=== PATIENT | female | born 1980 | race Caucasian/White ===

== ENCOUNTER 2017-12-27 09:45 | Emergency (ER) | payer MEDICAID ==
[~2017-12-27] VITALS: Ht 165.1 cm; Wt 81.6 kg
[~2017-12-27 09:45] MED LIST: IBUP-974 PO
[2017-12-27 09:50] VITALS: BP 116/75
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
[2017-12-27] MEDS ORDERED: KETOROLAC 60 MG/2 ML VIAL IM ONE (10:14)
[2017-12-27] MEDS: KETOROLAC 60 MG/2 ML VIAL IM ONE (10:16)
--- NOTE | 2017-12-27 10:50 | NUR ---
PT HOLDING LENGTHY CONVERSATION ON CELL PHONE , NO GRIMACE OR MOAN NOTED. CONTINUES TO WAIT FOR MD DALE
--- NOTE | 2017-12-27 11:05 | NUR ---
ER MD DR. EUCEDA EVALUATING PT AT [facility].
--- NOTE | 2017-12-27 11:17 | NUR ---
Patient discharged with v/s stable. Written and verbal after care instructions given and explained. Patient alert, oriented and verbalized understanding of instructions. Ambulatory with steady gait. All questions addressed prior to discharge. ID band removed. Patient advised to follow up with PMD. Rx of NORCO/MOTRIN given. Patient educated on indication of medication including possible reaction and side effects. Opportunity to ask questions provided and answered.
[2017-12-27 11:18] VITALS: BP 113/79
--- NOTE | 2017-12-27 11:18 | NUR ---
AMBULATORY WITH STEADY GAIT ---ADMITS PAIN LEVEL HAS DECREASED
== END 2017-12-27 11:17 | disposition home or self-care (01) ==
LOC: MED 09:45
DX: S13.4XXA Sprain of ligaments of cervical spine, initial encounter (principal); E78.5 Hyperlipidemia, unspecified; E11.9 Type 2 diabetes mellitus without complications; I10 Essential (primary) hypertension; Z90.49 Acquired absence of other specified parts of digestive tract; Z88.8 Allergy status to other drugs, medicaments and biological substances; V43.52XA Car driver injured in collision with other type car in traffic accident, initial encounter; Y93.I9 Activity, other involving external motion; Y92.488 Other paved roadways as the place of occurrence of the external cause; Y99.8 Other external cause status
CPT/HCPCS: 82948; 96372; 99283; J1885; 81002; 81025

== ENCOUNTER 2018-02-15 19:57 | Emergency (ER) | payer MEDICAID ==
[~2018-02-15] VITALS: Ht 165.1 cm; Wt 85.3 kg
[2018-02-15 20:11] VITALS: BP 126/77
--- NOTE | 2018-02-15 20:17 | NUR ---
TO BED # 9 VIA W/C
--- NOTE | 2018-02-15 20:22 | NUR ---
PT TO ER BED 9
--- NOTE | 2018-02-15 20:25 | NUR ---
PATIENT PRESENTS TO ED WITH DIZZINESS X10 DAYS. PT DENIES N/V/D; SKIN IS PINK/WARM/DRY; AAOX4 WITH EVEN AND STEADY GAIT; LUNGS CLEAR BL; HR EVEN AND REGULAR; PT DENIES ANY FEVER, CP, SOB, OR COUGH AT THIS TIME; PATIENT STATES PAIN OF 5/10 AT THIS TIME; VSS; PATIENT POSITIONED FOR COMFORT; HOB ELEVATED; BEDRAILS UP X1; BED DOWN. ER MD MADE AWARE OF PT STATUS.
[2018-02-15] MEDS ORDERED: METOCLOPRAMIDE 10 MG/2 ML INJ VIAL IVP ONE (21:40)
[2018-02-15] MEDS ORDERED: MECLIZINE 25 MG TAB PO ONE (21:40)
[2018-02-15] MEDS ORDERED: NACL 0.9% 1,000 ML IV ONE (21:40)
[2018-02-15 21:57] LABS: BASOPHILS # (AUTO) 0.1 K/uL (0.00-0.22); BASOPHILS % (AUTO) 0.8 % (0.0-2.0); EOSINOPHILS # (AUTO) 0.2 K/uL (0-0.4); EOSINOPHILS % (AUTO) 2.7 % (0.0-4.0); HEMATOCRIT 37.8 % (36-48); HEMOGLOBIN 12.5 g/dL (12.0-16.0); LYMPHOCYTES # (AUTO) 2.2 K/uL (2.5-16.5); LYMPHOCYTES % (AUTO) 24.9 % (20.5-51.1); MEAN CORPUSCULAR HEMOGLOBIN 28 pg (27-31); MEAN CORPUSCULAR HGB CONC 33 g/dL (33-37); MEAN CORPUSCULAR VOLUME 83.2 fL (80-94); MONOCYTES # (AUTO) 0.6 K/uL (0.8-1.0); MONOCYTES % (AUTO) 6.4 % (1.7-9.3); NEUTROPHILS # (AUTO) 5.8 K/uL (1.8-7.7); NEUTROPHILS % (AUTO) 65.2 % (42.2-75.2); PLATELET COUNT (AUTO) 253 K/uL (140-450); RED BLOOD CELL COUNT(AUTO) 4.54 MIL/uL (4.20-5.40); RED CELL DISTRIBUTION WIDTH 13.9 % (11.6-13.7); WHITE BLOOD COUNT (AUTO) 8.9 K/uL (4.8-10.8)
[2018-02-15 22:04] LABS: ANION GAP 12.4 (8-16); CARBON DIOXIDE 29.5 mmol/L (21-32); CREATININE 0.7 mg/dL (0.6-1.3); POTASSIUM 3.9 mmol/L (3.5-5.1)
[2018-02-15 22:12] LABS: ALBUMIN 3.7 g/dL (3.4-5.0); TOTAL BILIRUBIN 0.4 mg/dL (0.0-1.0)
--- NOTE | 2018-02-15 23:20 | NUR ---
IV removed, catheter intact and site benign. Applied folded 4x4 gauze and tape to stop bleeding.
[2018-02-15 23:22] VITALS: BP 126/77
--- NOTE | 2018-02-15 23:22 | NUR ---
Patient discharged BY DR. SYKES with v/s stable. Written and verbal after care instructions given and explained. Patient alert, oriented and verbalized understanding of instructions. Ambulatory with steady gait. All questions addressed prior to discharge. ID band removed. Patient advised to follow up with PMD. Rx of ANTIVERT given. Patient educated on indication of medication including possible reaction and side effects. Opportunity to ask questions provided and answered.
== END 2018-02-15 20:17 | disposition home or self-care (01) ==
LOC: MED 19:57
DX: H81.20 Vestibular neuronitis, unspecified ear (principal); E11.9 Type 2 diabetes mellitus without complications; I10 Essential (primary) hypertension; Z79.899 Other long term (current) drug therapy; Z88.8 Allergy status to other drugs, medicaments and biological substances
CPT/HCPCS: 36415; 80053; 85025; 96361; 96374; 99284; J2765; J7030; J8597

== ENCOUNTER 2019-02-14 22:44 | Emergency (ER) | payer MEDICAID ==
[~2019-02-14] VITALS: Ht 165.1 cm; Wt 84.4 kg
[2019-02-14 22:49] VITALS: BP 123/60
--- NOTE | 2019-02-14 22:49 | NUR ---
TO BED # 2 AMBULATORY
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
[2019-02-14] MEDS ORDERED: NACL 0.9% 1,000 ML IV ONE (23:37)
[2019-02-14] MEDS ORDERED: FAMOTIDINE 20 MG/2 ML VIAL IVP ONE (23:40)
[2019-02-14] MEDS ORDERED: diphenhydrAMINE 50 MG/ML VIAL IVP ONE (23:40)
[2019-02-14] MEDS ORDERED: methylPREDNISolone SS 125 MG in WATER STERILE 2 ML IV ONE (23:40)
--- NOTE | 2019-02-15 00:20 | NUR ---
PATIENT STATES SHE IS FEELING BETTER AT THIS TIME. DR MÉNDEZ MADE AWARE.
[2019-02-15 00:25] VITALS: BP 116/62
--- NOTE | 2019-02-15 00:26 | NUR ---
Patient discharged with v/s stable. Written and verbal after care instructions given and explained. Patient alert, oriented and verbalized understanding of instructions. Ambulatory with steady gait. All questions addressed prior to discharge. ID band removed. Patient advised to follow up with PMD. Rx of PREDNISONE, PEPCID, DIPHENHYDRAMINE HYDROCHLORIDE given. Patient educated on indication of medication including possible reaction and side effects. Opportunity to ask questions provided and answered.
== END 2019-02-15 00:25 | disposition home or self-care (01) ==
LOC: MED 22:44
DX: L50.0 Allergic urticaria (principal); E11.9 Type 2 diabetes mellitus without complications; I10 Essential (primary) hypertension; Z88.8 Allergy status to other drugs, medicaments and biological substances; Z79.899 Other long term (current) drug therapy
CPT/HCPCS: 96374; 96375; 99283; J1200; J2930; J3490; J7030

== ENCOUNTER 2019-07-12 22:29 | Emergency (ER) | payer MEDICAID ==
[~2019-07-12] VITALS: Ht 165.1 cm; Wt 86.2 kg
[2019-07-12 22:35] VITALS: BP 146/82
--- NOTE | 2019-07-12 22:45 | NUR ---
PT AMBULATED TO RESTROOM
--- NOTE | 2019-07-12 22:48 | NUR ---
39 Y/O F PRESENTS TO ER C/O N/V/D SINCE TODAY. PER PT SHE VOMITED 5-6 TIMES AND HAD DIARRHEA 5-6 TIMES. PT ATE DINNER AND ABOUT 30 MINUTES LATER SHE STARTED FEELING SICK. PT DENIES FEVER OR CHILLS. BOWEL SOUNDS ACTIVE X 4 QUADRANTS. ABDOMEN IS SOFT AND ROUND, TENDER TO TOUCH. PAIN LEVEL 8/10, CRAMPING. ALLERGIES: MEPERIDINE. MED HX: DM AND APPENDIX REMOVAL. SAFETY MEASURES IN PLACE. ERMD AT BEDSIDE.
[2019-07-12] MEDS ORDERED: KETOROLAC 30 MG/ML VIAL IVP ONE (23:05)
[2019-07-12] MEDS ORDERED: ONDANSETRON 4 MG/2 ML VIAL IVP ONE (23:05)
[2019-07-12] MEDS ORDERED: FAMOTIDINE 20 MG/2 ML VIAL IVP ONE (23:05)
[2019-07-12] MEDS ORDERED: NACL 0.9% 1,000 ML IV ONE (23:05)
[2019-07-12 23:16] LABS: BASOPHILS # (AUTO) 0.1 K/uL (0.00-0.22); BASOPHILS % (AUTO) 0.4 % (0.0-2.0); EOSINOPHILS # (AUTO) 0.1 K/uL (0-0.4); EOSINOPHILS % (AUTO) 0.9 % (0.0-4.0); HEMATOCRIT 41.9 % (36-48); HEMOGLOBIN 13.8 g/dL (12.0-16.0); LYMPHOCYTES # (AUTO) 1.3 K/uL (2.5-16.5); LYMPHOCYTES % (AUTO) 9.9 % (20.5-51.1); MEAN CORPUSCULAR HEMOGLOBIN 28 pg (27-31); MEAN CORPUSCULAR HGB CONC 33 g/dL (33-37); MEAN CORPUSCULAR VOLUME 86.1 fL (80-94); MONOCYTES # (AUTO) 0.6 K/uL (0.8-1.0); MONOCYTES % (AUTO) 4.3 % (1.7-9.3); NEUTROPHILS # (AUTO) 11.2 K/uL (1.8-7.7); NEUTROPHILS % (AUTO) 84.5 % (42.2-75.2); PLATELET COUNT (AUTO) 306 K/uL (140-450); RED BLOOD CELL COUNT(AUTO) 4.87 MIL/uL (4.20-5.40); RED CELL DISTRIBUTION WIDTH 13.4 % (11.6-13.7); WHITE BLOOD COUNT (AUTO) 13.3 K/uL (4.8-10.8)
--- NOTE | 2019-07-12 23:19 | NUR ---
PER PT SHE SEEN HER PCP TODAY AND WAS DX WITH A UTI. PT RECEIVED A RX BUT HAS NOT PICKED UP PRESCRIPTION FROM PHARMACY YET. PRUDENCE MADE AWARE.
[2019-07-12 23:20] LABS: APPEARANCE,URINE SL CLOUDY (CLEAR); BILIRUBIN,URINE NEGATIVE (NEGATIVE); BLOOD, URINE NEGATIVE (NEGATIVE); COLOR,URINE YELLOW (YELLOW); LEUKOCYTE ESTERASE ,URINE TRACE (NEGATIVE); NITRITE, URINE NEGATIVE (NEGATIVE); UGLUCOSE NEGATIVE (NEGATIVE)
[2019-07-12 23:27] LABS: ANION GAP 16.1 (8-16); CARBON DIOXIDE 25.2 mmol/L (21-32); CREATININE 0.8 mg/dL (0.6-1.3); POTASSIUM 4.3 mmol/L (3.5-5.1)
[2019-07-12 23:34] LABS: ALBUMIN 4.2 g/dL (3.4-5.0); TOTAL BILIRUBIN 0.6 mg/dL (0.0-1.0)
[2019-07-12 23:38] LABS: RBC,URINE 0-5 /HPF (0-5)
--- NOTE | 2019-07-12 23:40 | NUR ---
PT STATES SHE FEELS MUCH BETTER. PAIN LEVEL 0/10.
[2019-07-13 00:46] VITALS: BP 115/69
--- NOTE | 2019-07-13 00:46 | NUR ---
Patient discharged with v/s stable. Written and verbal after care instructions given and explained. Patient alert, oriented and verbalized understanding of instructions. Ambulatory with steady gait. All questions addressed prior to discharge. ID band removed. Patient advised to follow up with PMD. Rx of ZOFRAN 4MG; PEPCID 20MG; BENTYL 20MG given. Patient educated on indication of medication including possible reaction and side effects. Opportunity to ask questions provided and answered.
== END 2019-07-13 00:46 | disposition home or self-care (01) ==
LOC: MED 22:29
DX: R11.2 Nausea with vomiting, unspecified (principal); R19.7 Diarrhea, unspecified; E11.9 Type 2 diabetes mellitus without complications; I10 Essential (primary) hypertension; Z90.49 Acquired absence of other specified parts of digestive tract; Z98.890 Other specified postprocedural states; Z79.899 Other long term (current) drug therapy; Z88.5 Allergy status to narcotic agent
CPT/HCPCS: 36415; 80053; 81001; 81025; 82948; 83690; 84703; 85025; 87086; 96361; 96374; 96375; 99283; J1885; J2405; J3490; J7030

== ENCOUNTER 2019-11-09 20:47 | Emergency (ER) | payer MEDICAID ==
[~2019-11-09] VITALS: Ht 165.1 cm; Wt 83.9 kg
[2019-11-09 20:50] VITALS: BP 135/86
--- NOTE | 2019-11-09 20:53 | NUR ---
to lobby a/w bed ambulatory
--- NOTE | 2019-11-09 21:23 | NUR ---
PT TAKEN TO BED 11
--- NOTE | 2019-11-09 21:29 | NUR ---
BIB SELF C/O PELVIC PAIN ASSOCIATED WITH BURNING/FREQUENT URINATION WELL STREAKS OF BLOOD IN URINE AND WHEN WIPING X3 DAYS. DENIES FLANK PAIN, N/V/D, BACK PAIN. DENIES SOB/ CP. RESP EVEN AND UNLABORED. AAOX3. CAP REFILL <3. LUNG SOUNDS CLEAR IN BILAT LOBES. BOWEL SOUNDS NORMO ACTIVE PMH: DM, UTI ALLERGIES: DEMEROL, MEPERIDINE
[2019-11-09 22:24] LABS: APPEARANCE,URINE CLOUDY (CLEAR); BILIRUBIN,URINE NEGATIVE (NEGATIVE); BLOOD, URINE 3+ (NEGATIVE); COLOR,URINE YELLOW (YELLOW); LEUKOCYTE ESTERASE ,URINE 3+ (NEGATIVE); NITRITE, URINE NEGATIVE (NEGATIVE); UGLUCOSE 2+ (NEGATIVE)
[2019-11-09] MEDS ORDERED: cefTRIAXone 1,000 MG in LIDOCAINE MPF 1% 2.1 ML IM ONE (22:40)
[2019-11-09] MEDS ORDERED: LIDOCAINE MPF 1% 5 ML ONE (22:42)
[2019-11-09] MEDS ORDERED: cefTRIAXone 1,000 MG VIAL ONE (22:42)
[2019-11-09 22:49] LABS: WBC,URINE TOO MANY TO COUNT /HPF (0-5)
[2019-11-09 22:50] LABS: TRICHOMONAS,URINE Few /HPF (None Seen)
[2019-11-09 22:56] VITALS: BP 135/86
--- NOTE | 2019-11-09 22:56 | NUR ---
Patient discharged with v/s stable. Written and verbal after care instructions given and explained. Patient alert, oriented and verbalized understanding of instructions. Ambulatory with steady gait. All questions addressed prior to discharge. ID band removed. Patient advised to follow up with PMD. Rx of KEFLEX, PYRIDIUM given. Patient educated on indication of medication including possible reaction and side effects. Opportunity to ask questions provided and answered.
== END 2019-11-09 22:56 | disposition home or self-care (01) ==
LOC: MED 20:47
DX: N12 Tubulo-interstitial nephritis, not specified as acute or chronic (principal); E11.9 Type 2 diabetes mellitus without complications; Z98.890 Other specified postprocedural states; Z79.899 Other long term (current) drug therapy; Z88.5 Allergy status to narcotic agent
CPT/HCPCS: 81001; 81025; 87086; 96372; 99283; J0696; J2001

== ENCOUNTER 2020-04-10 10:56 | Emergency (ER) | payer MEDICAID ==
[~2020-04-10] VITALS: Ht 165.1 cm; Wt 85.7 kg
[2020-04-10 11:19] VITALS: BP 123/74
--- NOTE | 2020-04-10 11:34 | NUR ---
C/O COUGH, HEADACHE X 2 DAY, FEVER X TODAY. BLOOD SUGAR 219 AT THIS TIME. TEMP 97.4 , P 89, O2 SAT 97%AT THIS TIME. MED HX: DM
--- NOTE | 2020-04-10 11:51 | NUR ---
F/U SLIP FOR COVIG TESTING RESULTS HANDED TO PT Patient discharged with v/s stable. Written and verbal after care instructions given and explained. Patient alert, oriented and verbalized understanding of instructions. Ambulatory with steady gait. All questions addressed prior to discharge. ID band removed. Patient advised to follow up with PMD. Rx of PROMETHAZINE DM given. Patient educated on indication of medication including possible reaction and side effects. Opportunity to ask questions provided and answered.
--- NOTE | 2020-04-10 11:51 | NUR ---
COVIG-19 SWAB COLLECTED AND WALKED OVER TO LAB
[2020-04-10 11:52] VITALS: BP 119/68
== END 2020-04-10 11:51 | disposition home or self-care (01) ==
LOC: MED 10:56
DX: R05 Cough (principal); Z20.828 Contact with and (suspected) exposure to other viral communicable diseases; R50.9 Fever, unspecified; R51 Headache; E11.9 Type 2 diabetes mellitus without complications; Z90.49 Acquired absence of other specified parts of digestive tract; Z79.899 Other long term (current) drug therapy; Z88.5 Allergy status to narcotic agent
CPT/HCPCS: 99283; U0003

== ENCOUNTER 2020-11-09 23:08 | Emergency (ER) | payer MEDICAID, SELFPAY ==
[~2020-11-09] VITALS: Ht 165.1 cm; Wt 83.9 kg
[2020-11-09 23:20] VITALS: BP 121/62
[2020-11-09 23:37] VITALS: BP 121/62
== END 2020-11-10 00:43 | disposition home or self-care (01) ==
LOC: MED 23:08
DX: U07.1 COVID-19 (principal); E11.9 Type 2 diabetes mellitus without complications; Z88.5 Allergy status to narcotic agent
CPT/HCPCS: 99283

== ENCOUNTER 2021-08-10 05:01 | Emergency (ER) | payer MEDICAID, SELFPAY ==
[~2021-08-10] VITALS: Ht 165.1 cm; Wt 72.6 kg
[2021-08-10] MEDS ORDERED: FAMOTIDINE 20 MG TAB PO ONE (05:20)
[2021-08-10] MEDS ORDERED: diphenhydrAMINE 50 MG/ML VIAL IM ONE (05:20)
[2021-08-10] MEDS ORDERED: methylPREDNISolone SS 125 MG/2 ML VIAL IVP ONE (05:20)
[2021-08-10 05:22] VITALS: BP 124/68
[2021-08-10] MEDS ORDERED: PRED20TA6 PO (05:42)
[2021-08-10] MEDS ORDERED: FAMO-90 PO (05:42)
[2021-08-10] MEDS ORDERED: DIPH25TA53 PO (05:42)
[2021-08-10] MEDS ORDERED: EPIN1KIT31 IM (05:42)
--- NOTE | 2021-08-10 06:00 | NUR ---
PT LAYING ON GURNEY C/O ITCHING AND RASH TO TRUNK AND ARMS, SWELLING TO FACE. NO RESP DISTRESS NOTED. ALLERGIC RX "BEFORE BUT A LONG TIME AGO" PENDING DISPO
--- NOTE | 2021-08-10 06:45 | NUR ---
DECREASED ITCHING AND REDNESS. PENDING D/C
--- NOTE | 2021-08-10 06:56 | NUR ---
Patient discharged with v/s stable. Written and verbal after care instructions given and explained. Patient alert, oriented and verbalized understanding of instructions. Ambulatory with steady gait. All questions addressed prior to discharge. S/L REMOVED. ID band removed. Patient advised to follow up with PMD. Rx of PREDNISONE, EPIPEN, PEPCID, BENADRYL given. Patient educated on indication of medication including possible reaction and side effects. Opportunity to ask questions provided and answered.
[2021-08-10 07:01] VITALS: BP 120/70
[2021-08-11] MEDS ORDERED: PRED20TA5 PO ×2 (16:08→16:15)
== END 2021-08-10 06:56 | disposition home or self-care (01) ==
LOC: MED 05:01
DX: T78.40XA Allergy, unspecified, initial encounter (principal); E11.9 Type 2 diabetes mellitus without complications; Z79.899 Other long term (current) drug therapy; Z88.8 Allergy status to other drugs, medicaments and biological substances; X58.XXXA Exposure to other specified factors, initial encounter
CPT/HCPCS: 96372; 96374; 99284; J1200; J2930

== ENCOUNTER 2021-08-11 15:36 | Emergency (ER) | payer MEDICAID ==
[~2021-08-11] VITALS: Ht 165.1 cm; Wt 72.6 kg
[~2021-08-11 15:36] MED LIST changes: +DIPH25TA53 PO; +EPIN1KIT31 IM; +FAMO-90 PO; +PRED20TA6 PO
[2021-08-11 15:41] VITALS: BP 138/97
--- NOTE | 2021-08-11 15:52 | NUR ---
PT AMBULATED TO BED
--- NOTE | 2021-08-11 16:00 | NUR ---
DR EUCEDA AT BEDSIDE EXAMINING PT
[2021-08-11] MEDS ORDERED: PRED20TA5 PO ×2 (16:08→16:15)
--- NOTE | 2021-08-11 16:21 | NUR ---
NO NURSING INTERVENTIONS IMPLEMENTED
[2021-08-11 16:22] VITALS: BP 138/97
--- NOTE | 2021-08-11 16:22 | NUR ---
Patient discharged with v/s stable. Written and verbal after care instructions given and explained. Patient alert, oriented and verbalized understanding of instructions. Ambulatory with steady gait. All questions addressed prior to discharge. ID band removed. Patient advised to follow up with PMD. Rx of DELTASONE given. Patient educated on indication of medication including possible reaction and side effects. Opportunity to ask questions provided and answered.
== END 2021-08-11 16:22 | disposition home or self-care (01) ==
LOC: MED 15:36
DX: T78.49XA Other allergy, initial encounter (principal); E11.9 Type 2 diabetes mellitus without complications; Z90.49 Acquired absence of other specified parts of digestive tract; Z98.890 Other specified postprocedural states; Z79.899 Other long term (current) drug therapy; Z79.1 Long term (current) use of non-steroidal anti-inflammatories (NSAID); Z88.5 Allergy status to narcotic agent; X58.XXXA Exposure to other specified factors, initial encounter
CPT/HCPCS: 99283

== ENCOUNTER 2021-12-08 19:02 | Emergency (ER) | payer MEDICAID ==
[~2021-12-08] VITALS: Ht 165.1 cm; Wt 77.6 kg
[~2021-12-08 19:02] MED LIST changes: +PRED20TA5 PO
[2021-12-08 19:28] VITALS: BP 131/59
--- NOTE | 2021-12-08 19:53 | NUR ---
PT TAKEN TO BED 5
[2021-12-08] MEDS: LIDOCAINE MPF 1% 10 MG/ML VIAL INJ ONE (20:05)
[2021-12-08] MEDS: BACITRACIN OINT 500 UNITS/GM PKT TP ONE (20:05)
[2021-12-08] MEDS ORDERED: CEPH-588 PO (20:22)
[2021-12-08] MEDS ORDERED: BACI1PAC6 TP (20:22)
[2021-12-08 21:26] VITALS: BP 127/76
== END 2021-12-08 21:26 | disposition home or self-care (01) ==
LOC: MED 19:02
DX: S51.812A Laceration without foreign body of left forearm, initial encounter (principal); E11.9 Type 2 diabetes mellitus without complications; Z90.49 Acquired absence of other specified parts of digestive tract; Z98.890 Other specified postprocedural states; Z79.2 Long term (current) use of antibiotics; Z79.899 Other long term (current) drug therapy; Z79.1 Long term (current) use of non-steroidal anti-inflammatories (NSAID); Z88.5 Allergy status to narcotic agent; W26.8XXA Contact with other sharp object(s), not elsewhere classified, initial encounter; Y93.89 Activity, other specified; Y92.89 Other specified places as the place of occurrence of the external cause; Y99.8 Other external cause status
CPT/HCPCS: 12001; 90471; 90715; 99283; J2001

== ENCOUNTER 2022-01-09 07:00 | Emergency (ER) | payer MEDICAID ==
[~2022-01-09] VITALS: Ht 165.1 cm; Wt 78.0 kg
[~2022-01-09 07:00] MED LIST changes: +BACI1PAC6 TP; +CEPH-588 PO
[2022-01-09 07:06] VITALS: BP 121/77
--- NOTE | 2022-01-09 07:13 | NUR ---
41 Y/O F AMBULATED TO BED 11 WITH STEADY GAIT, C/O BI-LAT HAND PAIN AND STIFFNESS THAT RADIATES UP THE ARMS. SHE HAS HAD THIS GOING ON FOR ABOUT 1 MONTH AND USUALLY IBUPROFEN HELPS BUT TODAY IT DID NOT. PMH: DM, HLD MEDS: METFORMIN, INSULIN, LISINOPRIL, ATORVASTATIN, ASPIRIN ALLERGY: DEMEROL
--- NOTE | 2022-01-09 07:32 | NUR ---
DR EUCEDA AT BEDSIDE FOR MSE
[2022-01-09] MEDS ORDERED: KETOROLAC 60 MG/2 ML VIAL IM ONE (07:35)
[2022-01-09] MEDS ORDERED: ACET-8386 PO (07:51)
[2022-01-09] MEDS ORDERED: IBUP-2213 PO (07:51)
[2022-01-09 08:00] VITALS: BP 121/77
--- NOTE | 2022-01-09 08:00 | NUR ---
Patient discharged with v/s stable. Written and verbal after care instructions given and explained. Patient alert, oriented and verbalized understanding of instructions. Ambulatory with steady gait. All questions addressed prior to discharge. ID band removed. Patient advised to follow up with PMD. Rx of NORCO 5-325, IBUPROFEN given. Patient educated on indication of medication including possible reaction and side effects. Opportunity to ask questions provided and answered.
[2022-01-10] MEDS ORDERED: LYR50 PO ×3 (03:59→05:07)
[2022-01-10] MEDS ORDERED: IBUP-2213 PO (05:11)
== END 2022-01-09 08:00 | disposition home or self-care (01) ==
LOC: MED 07:00
DX: M79.601 Pain in right arm (principal); R20.2 Paresthesia of skin; E11.9 Type 2 diabetes mellitus without complications; Z90.49 Acquired absence of other specified parts of digestive tract; Z79.899 Other long term (current) drug therapy; Z88.5 Allergy status to narcotic agent
CPT/HCPCS: 96372; 99283; J1885; 99282

== ENCOUNTER 2022-01-10 02:57 | Emergency (ER) | payer MEDICAID ==
[~2022-01-10] VITALS: Ht 160 cm; Wt 72.6 kg
[~2022-01-10 02:57] MED LIST changes: +ACET-8386 PO; +IBUP-2213 PO
[2022-01-10 03:21] VITALS: BP 133/80
[2022-01-10] MEDS ORDERED: LYR50 PO ×3 (03:59→05:07)
[2022-01-10] MEDS ORDERED: HYDROcodone/APAP 5/325 MG 1 TAB TAB PO ONE (04:15)
[2022-01-10 04:38] LABS: BASOPHILS # (AUTO) 0.1 K/uL (0.00-0.22); BASOPHILS % (AUTO) 0.9 % (0.0-2.0); EOSINOPHILS # (AUTO) 0.4 K/uL (0-0.4); EOSINOPHILS % (AUTO) 4.5 % (0.0-4.0); HEMOGLOBIN 12.8 g/dL (12.0-16.0); LYMPHOCYTES # (AUTO) 2.5 K/uL (2.5-16.5); LYMPHOCYTES % (AUTO) 30.4 % (20.5-51.1); MEAN CORPUSCULAR HEMOGLOBIN 29 pg (27-31); MEAN CORPUSCULAR HGB CONC 34 g/dL (33-37); MEAN CORPUSCULAR VOLUME 86.1 fL (80-94); MONOCYTES # (AUTO) 0.5 K/uL (0.8-1.0); MONOCYTES % (AUTO) 6.5 % (1.7-9.3); NEUTROPHILS # (AUTO) 4.8 K/uL (1.8-7.7); NEUTROPHILS % (AUTO) 57.7 % (42.2-75.2); PLATELET COUNT (AUTO) 249 K/uL (140-450); RED BLOOD CELL COUNT(AUTO) 4.41 MIL/uL (4.20-5.40); RED CELL DISTRIBUTION WIDTH 13.1 % (11.6-13.7); WHITE BLOOD COUNT (AUTO) 8.4 K/uL (4.8-10.8)
[2022-01-10] MEDS ORDERED: PREGABALIN 50 MG CAP PO SCH ×2 (04:40→09:00)
[2022-01-10 04:58] LABS: ALBUMIN 3.4 g/dL (3.4-5.0); ANION GAP 13.2 (8-16); CARBON DIOXIDE 27.8 mmol/L (21-32); CREATININE 0.7 mg/dL (0.6-1.3); TOTAL BILIRUBIN 0.3 mg/dL (0.0-1.0)
[2022-01-10] MEDS ORDERED: IBUP-2213 PO (05:11)
[2022-01-10 05:28] VITALS: BP 133/80
== END 2022-01-10 05:29 | disposition home or self-care (01) ==
LOC: MED 02:57
DX: R20.2 Paresthesia of skin (principal); M79.642 Pain in left hand; M79.641 Pain in right hand; E11.9 Type 2 diabetes mellitus without complications; Z79.899 Other long term (current) drug therapy; Z88.5 Allergy status to narcotic agent
CPT/HCPCS: 36415; 80053; 85025; 99283

== ENCOUNTER 2022-02-27 22:40 | Emergency (ER) | payer MEDICAID ==
[~2022-02-27] VITALS: Ht 165.1 cm; Wt 79.4 kg
[~2022-02-27 22:40] MED LIST changes: +LYR50 PO
[2022-02-27 23:31] VITALS: BP 122/74
--- NOTE | 2022-02-27 23:40 | NUR ---
PT TAKEN TO ER BED 1
--- NOTE | 2022-02-27 23:59 | NUR ---
ER MD AT BEDSIDE EXAMINING PT
--- NOTE | 2022-02-28 00:03 | NUR ---
41 Y/O FEMALE BIBS FROM HOME, C/O 07/20 HEADACHE. REPORTS BLURRED VISION, NAUSEA AND SENSITIVITY TO LIGHT AND SOUND. SPEAKING IN FULL SENTENCES AND UNLABORED BREATHING. PT AMBULATORY W/O ASSISTANCE. PT SEATED IN BED WITH HOB RAISED, BED IN LOWEST SETTING, AND RAIL UP X2. HX:DM, HDL RX:INSULIN, METFORMIN, JANUVIA, LISINOPRIL AND ATROVASTATIN ALLERG:MEPERIDINE
[2022-02-28] MEDS ORDERED: KETOROLAC 30 MG/ML VIAL IVP ONE (00:05)
[2022-02-28] MEDS ORDERED: NACL 0.9% 1,000 ML IV ONE (00:05)
[2022-02-28] MEDS ORDERED: diphenhydrAMINE 50 MG/ML VIAL IVP ONE (00:05)
[2022-02-28] MEDS ORDERED: ONDANSETRON 4 MG/2 ML VIAL IVP ONE (00:05)
--- NOTE | 2022-02-28 00:20 | NUR ---
DIRECTOR OF IN SERVICE EDUCATION AT BEDSIDE OBTAINING BLOOD DRAW
[2022-02-28 00:27] LABS: BASOPHILS % (AUTO) 0.4 % (0.0-2.0); EOSINOPHILS # (AUTO) 0.3 K/uL (0-0.4); EOSINOPHILS % (AUTO) 2.6 % (0.0-4.0); HEMATOCRIT 41.5 % (36-48); LYMPHOCYTES # (AUTO) 2.7 K/uL (2.5-16.5); LYMPHOCYTES % (AUTO) 27.2 % (20.5-51.1); MEAN CORPUSCULAR HEMOGLOBIN 29 pg (27-31); MEAN CORPUSCULAR HGB CONC 34 g/dL (33-37); MEAN CORPUSCULAR VOLUME 86.2 fL (80-94); MONOCYTES # (AUTO) 0.5 K/uL (0.8-1.0); MONOCYTES % (AUTO) 5.3 % (1.7-9.3); NEUTROPHILS # (AUTO) 6.4 K/uL (1.8-7.7); NEUTROPHILS % (AUTO) 64.5 % (42.2-75.2); PLATELET COUNT (AUTO) 290 K/uL (140-450); RED BLOOD CELL COUNT(AUTO) 4.81 MIL/uL (4.20-5.40); RED CELL DISTRIBUTION WIDTH 13.4 % (11.6-13.7); WHITE BLOOD COUNT (AUTO) 9.9 K/uL (4.8-10.8)
[2022-02-28 00:50] LABS: ALBUMIN 4.3 g/dL (3.4-5.0); ANION GAP 15.5 (8-16); CARBON DIOXIDE 29.5 mmol/L (21-32); CREATININE 0.8 mg/dL (0.6-1.3); TOTAL BILIRUBIN 0.3 mg/dL (0.0-1.0)
--- NOTE | 2022-02-28 01:00 | NUR ---
PT RETURNED FROM CT
[2022-02-28] MEDS ORDERED: NAPR-54 PO (02:19)
[2022-02-28] MEDS ORDERED: IMI50 PO (02:19)
[2022-02-28 02:27] VITALS: BP 126/76
--- NOTE | 2022-02-28 02:29 | NUR ---
Patient discharged with v/s stable. Written and verbal after care instructions given and explained. Patient alert, oriented and verbalized understanding of instructions. Ambulatory with steady gait. All questions addressed prior to discharge. ID band removed. Patient advised to follow up with PMD. Rx of IMITREX AND NAPROSYN given. Patient educated on indication of medication including possible reaction and side effects. Opportunity to ask questions provided and answered. a/ox4, vss, unlabored breathing, ambulatory, and calm demeanor.
== END 2022-02-28 02:27 | disposition home or self-care (01) ==
LOC: MED 22:40
DX: G43.909 Migraine, unspecified, not intractable, without status migrainosus (principal); R11.2 Nausea with vomiting, unspecified; H53.149 Visual discomfort, unspecified; E11.9 Type 2 diabetes mellitus without complications; Z79.899 Other long term (current) drug therapy; Z88.8 Allergy status to other drugs, medicaments and biological substances
CPT/HCPCS: 36415; 70450; 80053; 81002; 81025; 85025; 96361; 96374; 96375; 99284; J1200; J1885; J2405; J7030